=== PATIENT | female | born 1955 | race Caucasian/White ===

== ENCOUNTER 2016-11-18 09:52 | Observation (INO) | payer OTHER, MEDICAID ==
[2016-11-18] VITALS (14 sets, daily range): BP systolic 104–121; BP diastolic 55–78; PULSE 77–105; RESP 12–18; TEMP 96.7–98.6; O2SAT 90–98
[~2016-11-18] VITALS: Ht 149.9 cm; Wt 65.1 kg
--- NOTE | 2016-11-18 10:16 | PD ---
HPI Chief Complaint: Chest Pain Time Seen by Provider: 10:04 Travel History International Travel<30 days: No Contact w/Intl Traveler<30days: No Traveled to known affect area: No History of Present Illness HPI 61-year-old female complains of chest pain. Patient states that she has persistent chest pain for the past 3 days. Patient states the chest pain is aching pain with radiation to the left shoulder and left arm. Patient denies any nausea vomiting diaphoresis. Patient denies any coughing congestion fever chills. Patient has history of AZ in 2016 status post stent placement. Patient 's on aspirin 81 mg daily and Plavix. Patient did not take her medication this morning. Patient has history hypertension, diabetes, hyperlipidemia. Patient is a nonsmoker. Patient has family history of heart disease. Patient moved down here recently and does not have a local online content developer. On a scale of 1-10 the chest pain is an 8. Now. PFSH Past Medical History Hx Anticoagulant Therapy: Yes Cardiovascular Problems: Yes Diabetes: Yes ?: Not Social History Tobacco Use: No Allergies-Medications (Allergen,Severity, Reaction): Coded Allergies: Biaxin (Verified Allergy, Severe, Nausea/Vomiting, 11/18/16) Darvon (Verified Allergy, Severe, Nausea/Vomiting, 11/18/16) Reported Meds & Prescriptions Reported Meds & Active Scripts Active Reported Temazepam 15 Mg Cap 15 Mg PO HS PRN Metformin (Metformin HCl) 500 Mg Tab 500 Mg PO BIDPC With meals Hydroxyzine HCl 50 Mg Tab 50 Mg PO TID Ropinirole 0.25 Mg Tab 0.25 Mg PO HS Quetiapine (Quetiapine Fumarate) 300 Mg Tab 300 Mg PO HS Atorvastatin (Atorvastatin Calcium) 80 Mg Tab 80 Mg PO HS Plavix (Clopidogrel Bisulfate) 75 Mg Tab 75 Mg PO DAILY Metoprolol Tartrate 25 Mg Tab 25 Mg PO DAILY Aspirin 81 Mg Chew 81 Mg CHEW DAILY Review of Systems General / Constitutional: No: Fever Eyes: No: Visual changes HENT: No: Headaches Cardiovascular: Positive: Chest Pain or Discomfort Respiratory: No: Shortness of Breath Gastrointestinal: No: Abdominal Pain Genitourinary: No: Dysuria Musculoskeletal: No: Pain Skin: No Rash Neurologic: No: Weakness Psychiatric: No: Depression Endocrine: No: Polydipsia Hematologic/Lymphatic: No: Easy Bruising Physical Exam Narrative GENERAL: Well-nourished, well-developed patient. SKIN: Focused skin assessment warm/dry. HEAD: Normocephalic. EYES: No scleral icterus. No injection or drainage. NECK: Supple, trachea midline. No JVD or lymphadenopathy. CARDIOVASCULAR: Regular rate and rhythm without murmurs, gallops, or rubs. RESPIRATORY: Breath sounds equal bilaterally. No accessory muscle use. GASTROINTESTINAL: Abdomen soft, non-tender, nondistended. MUSCULOSKELETAL: No cyanosis, or edema. BACK: Nontender without obvious deformity. No CVA tenderness. Neurologic exam normal. Data Data Last Documented VS Vital Signs Date Time Temp Pulse Resp B/P Pulse Ox O2 Delivery O2 Flow Rate FiO2 11/18/16 10:34 18 11/18/16 10:32 105 104/58 98 Room Air 11/18/16 10:07 98.6 Orders Electrocardiogram (11/18/16 10:10) Complete Blood Count With Diff (11/18/16 10:10) Comprehensive Metabolic Panel (11/18/16 10:10) Creatine Kinase (Cpk) (11/18/16 10:10) Troponin I (11/18/16 10:10) Prothrombin Time / Inr (Pt) (11/18/16 10:10) Act Partial Throm Time (Ptt) (11/18/16 10:10) Chest, Single Ap (11/18/16 10:10) Iv Access Insert/Monitor (11/18/16 10:10) Ecg Monitoring (11/18/16 10:10) Oximetry (11/18/16 10:10) Aspirin (Aspirin) (11/18/16 10:30) Nitroglycerin Sl (Nitrostat Sl) (11/18/16 10:30) Morphine Inj (Morphine Inj) (11/18/16 11:30) Ondansetron Inj (Zofran Inj) (11/18/16 11:30) Admit Order (Ed Use Only) (11/18/16 11:21) Labs Laboratory Tests Test 11/18/16 10:00 White Blood Count 6.7 TH/MM3 Red Blood Count 4.51 MIL/MM3 Hemoglobin 13.0 GM/DL Hematocrit 38.1 % Mean Corpuscular Volume 84.4 FL Mean Corpuscular Hemoglobin 28.9 PG Mean Corpuscular Hemoglobin 34.2 % Concent Red Cell Distribution Width 12.4 % Platelet Count 146 TH/MM3 Mean Platelet Volume 9.4 FL Neutrophils (%) (Auto) 63.7 % Lymphocytes (%) (Auto) 26.6 % Monocytes (%) (Auto) 5.5 % Eosinophils (%) (Auto) 2.9 % Basophils (%) (Auto) 1.3 % Neutrophils # (Auto) 4.2 TH/MM3 Lymphocytes # (Auto) 1.8 TH/MM3 Monocytes # (Auto) 0.4 TH/MM3 Eosinophils # (Auto) 0.2 TH/MM3 Basophils # (Auto) 0.1 TH/MM3 CBC Comment DIFF FINAL Differential Comment Prothrombin Time 10.9 SEC Prothromb Time International 1.0 RATIO Ratio Activated Partial 28.0 SEC Thromboplast Time Sodium Level 142 MEQ/L Potassium Level 3.5 MEQ/L Chloride Level 105 MEQ/L Carbon Dioxide Level 26.7 MEQ/L Anion Gap 10 MEQ/L Blood Urea Nitrogen 21 MG/DL Creatinine 0.88 MG/DL Estimat Glomerular Filtration 65 ML/MIN Rate Random Glucose 207 MG/DL Calcium Level 8.9 MG/DL Total Bilirubin 0.5 MG/DL Aspartate Amino Transf 22 U/L (AST/SGOT) Alanine Aminotransferase 34 U/L (ALT/SGPT) Alkaline Phosphatase 123 U/L Total Creatine Kinase 66 U/L Troponin I LESS THAN 0.02 NG/ML Total Protein 7.4 GM/DL Albumin 3.9 GM/DL [facility] Medical Decision Making Medical Screen Exam Complete: Yes Emergency Medical Condition: Yes Interpretation(s) 10:16 AM. EKG shows sinus rhythm nonspecific ST-T wave change. Last Impressions Chest X-Ray 11/18/16 1010 Signed Impressions: Service Date/Time: Friday, November 18, 2016 10:30 - CONCLUSION: No acute cardiopulmonary abnormality is identified. Hari Causey MD 10:58 AM. CBC within normal limit. CMP within normal limit. Glucose 207. Cardiac enzymes are normal. Differential Diagnosis Differential diagnosis including angina, AZ, PE, pneumothorax. Narrative Course 61-year-old female with chest pain. History of CAD status post stent placement. Aspirin 325 mg by mouth given. Nitroglycerin sublingual given. Patient did not get relief with nitroglycerin from chest pain. Morphine 2 mg IV. Zofran 4 mg IV. I spoke Dr. Gonzales, online content developer on-call. Advised chest pain center. Diagnosis Primary Impression: Chest pain Qualified Code: R07.9 - Chest pain, unspecified type Roney Jacques MD Nov 18, 2016 10:16
[2016-11-18] MEDS ORDERED: PLAV75TA29 PO (10:18)
[2016-11-18] MEDS ORDERED: QUET1TAB10 PO (10:18)
[2016-11-18] MEDS ORDERED: HYDR50TA94 PO (10:18)
[2016-11-18] MEDS ORDERED: METO25TA3 PO (10:18)
[2016-11-18] MEDS ORDERED: ASPI81CH CHEW (10:18)
[2016-11-18] MEDS ORDERED: TEMA15CA PO (10:18)
[2016-11-18] MEDS ORDERED: ROPI0.25 PO (10:18)
[2016-11-18] MEDS ORDERED: ATOR1TAB18 PO (10:18)
[2016-11-18] MEDS ORDERED: METF500T PO (10:18)
[2016-11-18] MEDS ORDERED: ASPIRIN 325 MG TAB PO ONE (10:30)
[2016-11-18] MEDS ORDERED: NITROGLYCERIN 0.4 MG SL 25 TABS/BTL SL ONE (10:30)
[2016-11-18 10:32] LABS: CHLORIDE 105 MEQ/L (98-107); POTASSIUM 3.5 MEQ/L (3.5-5.1); SODIUM (NA) 142 MEQ/L (136-145)
[2016-11-18 10:35] LABS: PROTHROMBIN TIME - PATIENT 10.9 SEC (9.8-11.6)
[2016-11-18 10:36] LABS: ANION GAP 10 MEQ/L (5-15); BICARBONATE 26.7 MEQ/L (21.0-32.0); BLOOD UREA NITROGEN 21 MG/DL (7-18)
[2016-11-18 10:38] LABS: ALT (GPT) 34 U/L (10-53)
--- NOTE | 2016-11-18 10:38 | RADRPT ---
EXAM DATE/TIME: 11/18/2016 10:30 [facility] COMPARISON: No previous studies available for comparison. INDICATIONS : Chest pain. MEDICAL HISTORY : Cardiovascular disease. Diabetes mellitus type II. Myocardial infarction. Hypertension SURGICAL HISTORY : Coronary artery stent. ENCOUNTER: Initial ACUITY: 1 day PAIN SCORE: 8/10 LOCATION: Bilateral chest FINDINGS: Portable AP view of the chest demonstrates a normal-sized cardiac silhouette. Linear opacity at the l eft lung base represents either atelectasis or scar. No effusion, consolidation, or pneumothorax is v isualized. Bones and soft tissues demonstrate no acute finding. CONCLUSION: No acute cardiopulmonary abnormality is identified. Hari Causey MD on November 18, 2016 at 10:36 Board Certified Radiologist. This report was verified electronically.
[2016-11-18 10:39] LABS: AST (GOT) 22 U/L (15-37); AUTOMATED NEUTROPHIL # 4.2 TH/MM3 (1.8-7.7); BASOPHIL # 0.1 TH/MM3 (0-0.2); BASOPHIL % 1.3 % (0.0-2.0); EOSINOPHIL # 0.2 TH/MM3 (0-0.4); EOSINOPHIL % 2.9 % (0.0-4.0); GLOMERULAR FILTRATION RATE 65 ML/MIN (>89); HEMATOCRIT 38.1 % (35.0-46.0); HEMO FLAGS DIFF FINAL; LYMPH % 26.6 % (9.0-44.0); LYMPHOCYTE # 1.8 TH/MM3 (1.0-4.8); MEAN CELL VOLUME 84.4 FL (80.0-100.0); MEAN CORPUSCULAR HEMOGLOBIN 28.9 PG (27.0-34.0); MEAN CORPUSCULAR HGB CONC 34.2 % (32.0-36.0); MONO % 5.5 % (0.0-8.0); NEUT % 63.7 % (16.0-70.0); PLATELET COUNT 146 TH/MM3 (150-450); RED BLOOD COUNT 4.51 MIL/MM3 (4.00-5.30); RED CELL DISTRIBUTION WIDTH 12.4 % (11.6-17.2); WHITE BLOOD COUNT 6.7 TH/MM3 (4.0-11.0)
[2016-11-18 10:40] LABS: TOTAL BILIRUBIN ADULT 0.5 MG/DL (0.2-1.0)
[2016-11-18 10:41] LABS: ALKALINE PHOSPHATASE 123 U/L (45-117)
[2016-11-18 10:43] LABS: CREATINE KINASE 66 U/L (26-192)
[2016-11-18] MEDS ORDERED: ONDANSETRON HCL 4 MG/2 ML VIAL IV PUSH ONE (11:30)
[2016-11-18] MEDS ORDERED: ONDANSETRON HCL 4 MG/2 ML VIAL IV PRN (11:30)
[2016-11-18] MEDS ORDERED: MORPHINE SULFATE 8 MG/ML INJ IV PUSH ONE (11:30)
[2016-11-18] MEDS ORDERED: SODIUM CHLORIDE 0.9% FLUSH 10 ML FLUSH IV FLUSH PRN (11:30)
[2016-11-18] MEDS ORDERED: TEMAZEPAM 15 MG CAP PO PRN (12:15)
[2016-11-18] MEDS ORDERED: MORPHINE SULFATE 4 MG/ML INJ IV PUSH PRN (12:15)
[2016-11-18] MEDS ORDERED: SODIUM CHLOR 0.9% 1000 ML INJ 1,000 ML IV ONE (12:15)
[2016-11-18] MEDS ORDERED: GLUCAGON 1 MG/ML VIAL OTHER PRN (12:15)
[2016-11-18] MEDS ORDERED: DEXTROSE 50% IN WATER 50 ML VIAL(D50) IV PRN (12:15)
[2016-11-18] MEDS: CLOPIDOGREL 75 MG TAB PO SCH (13:02)
[2016-11-18] MEDS: hydrOXYzine HCL 50 MG TAB PO SCH ×2 (13:02→17:07)
--- NOTE | 2016-11-18 13:29 | HHI.HP ---
[facility] Renea Rodríguez MD Admission Diagnosis chest pain Diagnoses: (1) Chest pain (2) Hypertension Diagnosis: Secondary (3) Hyperlipidemia Diagnosis: Secondary (4) Coronary artery disease Diagnosis: Secondary (5) Diabetes Diagnosis: Secondary (6) History of coronary artery stent placement Chief Complaint: Chest discomfort Travel History International Travel<30 Days: No Contact w/Intl Traveler <30 Da: No Traveled to Known Affected Are: No History of Present Illness Written by Marcell Call, acting as scribe for Dr. Keller on 11/18/16 at 13:19. 61-year-old female with known history of hypertension, hyperlipidemia , coronary artery disease status post stenting, diabetes who presented to hospital because of chest discomfort for 3 days. Patient describes as a constant pain that starts in the left posterior lateral back around the 57 intercostal space and radiates up over her left shoulder and down into her anterior chest. He states the pain is constant at about 3/10 on a pain scale and does worsen to 8/10 on a pain scale whenever she exerts herself. She indicates the pain never goes away. The patient did get aspirin and nitroglycerin emergency department without any improvement. She does indicate that morphine did bring the pain down to a 3/10. She indicates that she has had previous heart attack in June 2015 where she had cardiac catheterization with stent placement. She does indicate that there has been times when she was nauseous. However she denies any shortness of breath, dyspnea, vomiting, lightheadedness, dizziness. Patient does not indicate that this pain is similar to her previous coronary event pain. The patient was moved down here recently and does not have a tapper supervisor in the area. The patient came to emergency department for evaluation. Thus far she has been ruled out for acute coronary event. Is recommended by ER physician that the patient be observed in the chest pain center for further workup. Review of Systems Cardiovascular: COMPLAINS OF: Chest pain Gastrointestinal: COMPLAINS OF: Nausea Except as stated in HPI: all other systems reviewed are Neg Past Family Social History Past Medical History Hypertension Hyperlipidemia Diabetes Coronary artery disease status post stenting Past Surgical History Bilateral knee surgery Cardiac catheterization with stenting Cataract surgery Reported Medications Reported Meds & Active Scripts Active Reported Temazepam 15 Mg Cap 15 Mg PO HS PRN Metformin (Metformin HCl) 500 Mg Tab 500 Mg PO BIDPC With meals Hydroxyzine HCl 50 Mg Tab 50 Mg PO TID Ropinirole 0.25 Mg Tab 0.25 Mg PO HS Quetiapine (Quetiapine Fumarate) 300 Mg Tab 300 Mg PO HS Atorvastatin (Atorvastatin Calcium) 80 Mg Tab 80 Mg PO HS Plavix (Clopidogrel Bisulfate) 75 Mg Tab 75 Mg PO DAILY Metoprolol Tartrate 25 Mg Tab 25 Mg PO DAILY Aspirin 81 Mg Chew 81 Mg CHEW DAILY Allergies: Coded Allergies: Biaxin (Verified Allergy, Severe, Nausea/Vomiting, 11/18/16) Darvon (Verified Allergy, Severe, Nausea/Vomiting, 11/18/16) Family History Reviewed is significant for father having heart disease at age 84. Social History Patient denies any tobacco, alcohol or illicit drugs Physical Exam Vital Signs Vital Signs Date Time Temp Pulse Resp B/P Pulse Ox O2 Delivery O2 Flow Rate FiO2 11/18/16 13:07 98 18 106/64 98 Room Air 11/18/16 11:52 97 18 106/69 97 Room Air 11/18/16 11:52 97 98 Room Air 11/18/16 11:33 18 11/18/16 10:34 18 11/18/16 10:32 105 18 104/58 98 Room Air 11/18/16 10:25 100 18 118/68 98 Room Air 11/18/16 10:16 94 18 111/70 97 Room Air 11/18/16 10:10 96 18 11/18/16 10:07 98.6 98 18 121/78 96 Physical Exam GENERAL: Well-developed, well-nourished, in no acute distress. alert and orientated HEENT: Head is normocephalic without any lesions or masses noted. Facial features are symmetric. Eyes: Pupils equal round reactive to light. Extraocular muscles are intact. Conjunctivae were clear. Oropharyngeal: Pharynx without any erythema edema. Tongue is midline without deviation. Buccal mucosa is moist without any masses or lesions NECK: Supple without any masses. Trachea midline no deviation. No JVD, no bruits are appreciated CARDIAC: Regular rhythm, regular rate. S1/S2 are heard. No murmurs gallops or rubs. Patient does have reproducible palpable tenderness noted along the back at about 57 intercostal spaces on the lateral aspect. There is also reproducible palpable tenderness noted between the second and third intercostal space at the left sternal border LUNGS: Clear to auscultation bilaterally. No wheeze, rhonchi or rales. No use of accessory muscles on inspiration or expiration. ABDOMEN: Soft, nontender. Nondistended. Bowel sounds heard in all 4 quadrants. No organomegaly or masses. Negative rebound, negative guarding EXTREMITIES: No edema, pulses are equal bilaterally. No cyanosis or clubbing NEUROLOGY: Mood and affect appear appropriate. Cranial nerves II through XII grossly intact. Muscle strength 5/5 in upper and lower extremities bilaterally. Deep tendon reflexes are 2+ in upper and lower extremities bilaterally. Laboratory Laboratory Tests Test 11/18/16 10:00 White Blood Count 6.7 Red Blood Count 4.51 Hemoglobin 13.0 Hematocrit 38.1 Mean Corpuscular Volume 84.4 Mean Corpuscular Hemoglobin 28.9 Mean Corpuscular Hemoglobin 34.2 Concent Red Cell Distribution Width 12.4 Platelet Count 146 Mean Platelet Volume 9.4 Neutrophils (%) (Auto) 63.7 Lymphocytes (%) (Auto) 26.6 Monocytes (%) (Auto) 5.5 Eosinophils (%) (Auto) 2.9 Basophils (%) (Auto) 1.3 Neutrophils # (Auto) 4.2 Lymphocytes # (Auto) 1.8 Monocytes # (Auto) 0.4 Eosinophils # (Auto) 0.2 Basophils # (Auto) 0.1 CBC Comment DIFF FINAL Differential Comment Prothrombin Time 10.9 Prothromb Time International 1.0 Ratio Activated Partial 28.0 Thromboplast Time Sodium Level 142 Potassium Level 3.5 Chloride Level 105 Carbon Dioxide Level 26.7 Anion Gap 10 Blood Urea Nitrogen 21 Creatinine 0.88 Estimat Glomerular Filtration 65 Rate Random Glucose 207 Calcium Level 8.9 Total Bilirubin 0.5 Aspartate Amino Transf 22 (AST/SGOT) Alanine Aminotransferase 34 (ALT/SGPT) Alkaline Phosphatase 123 Total Creatine Kinase 66 Troponin I LESS THAN 0.02 Total Protein 7.4 Albumin 3.9 Result Diagram: 11/18/16 1000 11/18/16 1000 Imaging Last Impressions Chest X-Ray 11/18/16 1010 Signed Impressions: Service Date/Time: Friday, November 18, 2016 10:30 - CONCLUSION: No acute cardiopulmonary abnormality is identified. Hari Causey MD Assessment and Plan Assessment and Plan Chest pain, atypical Patient has have increased risk factors to include age, hypertension, hyperlipidemia, coronary disease, diabetes, family history of heart disease Chest pain does appear to be atypical and reproducible on palpation, however we 'll rule patient out for acute coronary event with serial cardiac enzymes and serial EKGs Likely pursue nuclear stress test in the morning if patient having ruled out for acute coronary event Continue aspirin, nitroglycerin as needed, morphine for pain control Hypertension, hyperlipidemia, coronary artery disease Home medications have been continued Diabetes Accu-Cheks with sliding scale insulin DVT prevention Sequential compression devices This note was transcribed by scribe [Marcell Call]. I, Dr. Gaurang Keller, personally performed the history, physical exam, and medical decision making; and confirmed the accuracy of the information in the transcribed note. Discussed Condition With ER physician and the patient. Problem Qualifiers (1) Chest pain: Qualified Code: R07.9 - Chest pain, unspecified type (2) Hypertension: Qualified Code: I10 - Hypertension, unspecified type (3) Hyperlipidemia: Qualified Code: E78.5 - Hyperlipidemia, unspecified hyperlipidemia type (4) Coronary artery disease: Qualified Code: I25.10 - Coronary artery disease, angina presence unspecified, unspecified vessel or lesion type, unspecified whether sioux or transplanted heart (5) Diabetes: Qualified Code: E11.8 - Type 2 diabetes mellitus with complication, without long-term current use of insulin Marcell Call Nov 18, 2016 13:29 Gaurang Keller MD Nov 18, 2016 13:46
[2016-11-18 13:34] LABS: CREATINE KINASE 59 U/L (26-192)
--- NOTE | 2016-11-18 14:47 | EKG ---
Date Performed: 11/18/2016 Time Performed: 10:03:57 PTAGE: 61 years EKG: Sinus rhythm NONSPECIFIC T-WAVE ABNORMALITY BORDERLINE ECG NO PREVIOUS TRACING DOCTOR: Michael Hernandez Interpretating Date/Time 11/18/2016 14:45:43
[2016-11-18] MEDS: INSULIN ASPART SUPPLEMENTAL SCALE SQ SCH ×2 (15:32→21:00)
[2016-11-18] MEDS: ACETAMINOPHEN 500 MG CPLT PO PRN ×2 (17:07→22:06)
[2016-11-18 17:26] LABS: CREATINE KINASE 57 U/L (26-192)
[2016-11-18] MEDS ORDERED: QUEtiapine FUMARATE 300 MG TAB PO SCH (21:00)
[2016-11-18] MEDS ORDERED: ATORVASTATIN 40 MG TAB PO SCH (21:00)
[2016-11-18] MEDS: SODIUM CHLORIDE 0.9% FLUSH 10 ML FLUSH IV FLUSH SCH (22:06)
[2016-11-19 00:33] VITALS: BP 105/68; PULSE 77; RESP 16; TEMP 97.9; O2SAT 95
[2016-11-19 04:30] VITALS: BP 112/78; PULSE 90; RESP 12; TEMP 96.9; O2SAT 94
[2016-11-19] MEDS: INSULIN ASPART SUPPLEMENTAL SCALE SQ SCH ×2 (05:31→11:00)
[2016-11-19 08:00] VITALS: BP 121/79; PULSE 90; RESP 19; TEMP 97.3; O2SAT 95
[2016-11-19] MEDS: NITROGLYCERIN 0.4 MG SL 25 TABS/BTL SL PRN ×2 (08:52→09:05)
[2016-11-19] MEDS: SODIUM CHLORIDE 0.9% FLUSH 10 ML FLUSH IV FLUSH SCH (08:53)
[2016-11-19] MEDS: CLOPIDOGREL 75 MG TAB PO SCH (08:53)
[2016-11-19] MEDS: hydrOXYzine HCL 50 MG TAB PO SCH ×2 (08:53→12:28)
[2016-11-19] MEDS ORDERED: ASPIRIN 81 MG CHEW TAB CHEW SCH (09:00)
[2016-11-19 09:08] VITALS: O2SAT 98
[2016-11-19] MEDS ORDERED: REGADENOSON INJ 0.4 MG/5 ML SYR IV ONE (10:34)
--- NOTE | 2016-11-19 11:42 | RADRPT ---
EXAM DATE/TIME: 11/19/2016 10:25 [facility] COMPARISON: No previous studies available for comparison. INDICATIONS : Substernal chest pain with nausea radiating to left arm for three days. Angina. Coronary artery disea se. DOSE: 25.4 mCi Tc99m Myoview at stress. 8.5 mCi Tc99m Myoview at rest. 0.4 mg Lexiscan STRESS SYMPTOMS: Weird feeling and stomach pain. EJECTION FRACTION: > 70% MEDICAL HISTORY : Hypertension. Diabetes mellitus type 2. SURGICAL HISTORY : Coronary artery stent. Bilateral knee surgery. ENCOUNTER: Initial ACUITY: 3 days PAIN SCALE: 5/10 LOCATION: Substernal chest TECHNIQUE: The patient underwent pharmacologic stress with infusion of prescribed dose. Continuous ECG tracing was monitored during stress. Gated SPECT imaging was performed after stress and conventional SPECT i maging was performed at rest. The examination was performed on a SPECT/CT scanner, both attenuation and non-corrected datasets were reviewed. FINDINGS: DISTRIBUTION: The maximum perfused segment at stress is in the anterolateral wall. PERFUSION STUDY: The pattern of perfusion at stress is within normal limits. GATED STUDY: There is intact wall motion and thickening without hypokinetic or dyskinetic segments. CONCLUSION: Unremarkable study. RISK CATEGORY: Low (<1% Annual Mortality Rate) Dania Philip MD on November 19, 2016 at 11:39 Board Certified Radiologist. This report was verified electronically.
[2016-11-19 12:00] VITALS: BP 130/82; PULSE 98; RESP 18; TEMP 97.1; O2SAT 95
[2016-11-19] MEDS ORDERED: LIDOCAINE HCL 5% PATCH T-DERMAL SCH (12:09)
--- NOTE | 2016-11-19 12:16 | TR ---
Date Performed: 11/19/2016 Time Performed: 10:45:07 DOCTOR: Tomer Chandra DRUG LIST: CLINICAL HISTORY: CHEST PAIN REASON FOR TEST: Chest pain REASON FOR ENDING: OBSERVATION: CONCLUSION: Lexiscan stress test was performed under standard four minute protocol. Radionuclid e was injected one minute prior to ending the test. No electrocardiographic abormalities were present to suggest ischemia. Nuclear imaging and interpretation are pending. COMMENTS:
--- NOTE | 2016-11-19 12:17 | EKG ---
Date Performed: 11/18/2016 Time Performed: 12:46:22 PTAGE: 61 years EKG: Sinus rhythm WITH FIRST DEGREE AV BLOCK Since previous tracing, no significant change noted ABNORMAL ECG PREVIOUS TRACING : 11/18/2016 10.03 DOCTOR: Jose Galo Interpretating Date/Time 11/19/2016 12:16:14
--- NOTE | 2016-11-19 12:18 | EKG ---
Date Performed: 11/18/2016 Time Performed: 16:13:57 PTAGE: 61 years EKG: Sinus rhythm WITH FIRST DEGREE AV BLOCK NONSPECIFIC T-WAVE ABNORMALITY Since previous tracing, no significant edilma nge noted ABNORMAL ECG PREVIOUS TRACING : 11/18/2016 12.46 DOCTOR: Jose Galo Interpretating Date/Time 11/19/2016 12:16:28
[2016-11-19] MEDS: ACETAMINOPHEN 500 MG CPLT PO PRN (13:14)
--- NOTE | 2016-11-19 13:22 | HHI.DCPOC ---
Discharge Care Plan Diagnosis: (1) Chest pain Goals to Promote Your Health * To prevent worsening of your condition and complications * To maintain your health at the optimal level Directions to Meet Your Goals Take your medications as prescribed Follow your dietary instruction Follow activity as directed Keep your appointments as scheduled Take your immunizations and boosters as scheduled If your symptoms worsen call your PCP, if no PCP go to Urgent Care Center or Emergency Room Smoking is Dangerous to Your Health. Avoid second hand smoke Call the 24-hour hour crisis hotline for domestic abuse at Marcell Call Nov 19, 2016 13:22
[2016-11-19] MEDS ORDERED: LIDO5DIS5 T-DERMAL (14:52)
--- NOTE | 2016-11-19 14:58 | HHI.PR ---
Subjective Remarks Patient seen this morning around 11 AM. Says she is feeling fine. Denies any chest pain or shortness of breath. She does report continued left posterior thoracic pain worse with movement. Denies any nausea or vomiting. Denies any recent falls or injuries. Objective Vital Signs Date Time Temp Pulse Resp B/P Pulse Ox O2 Delivery O2 Flow Rate FiO2 11/19/16 12:00 97.1 98 18 130/82 95 11/19/16 09:08 98 21 11/19/16 08:00 97.3 90 19 121/79 95 11/19/16 04:30 96.9 90 12 112/78 94 11/19/16 00:33 97.9 77 16 105/68 95 11/18/16 22:00 82 11/18/16 21:02 96.7 85 12 105/65 90 11/18/16 20:30 94 21 11/18/16 18:00 82 11/18/16 16:00 96.8 82 18 110/73 95 I/O 11/18/16 11/18/16 11/18/16 11/19/16 11/19/16 11/19/16 06:59 14:59 22:59 06:59 14:59 22:59 Intake Total 2440 ml Balance 2440 ml Intake Oral 240 ml IV Total 2200 ml # Voids 2 2 Result Diagram: 11/18/16 1000 11/18/16 1000 Objective Remarks GENERAL: Patient sitting up in bed. Appears comfortable. Alert and oriented 3. SKIN: Warm and dry. HEAD: Normocephalic. EYES: No scleral icterus. No injection or drainage. NECK: Supple, trachea midline. No JVD. CARDIOVASCULAR: Regular rate and rhythm without murmurs, gallops, or rubs. RESPIRATORY: Breath sounds equal bilaterally. No accessory muscle use. GASTROINTESTINAL: Abdomen soft, non-tender, nondistended. MUSCULOSKELETAL: No cyanosis, or edema. Patient does have swelling of the left trapezius muscle. Exacerbation of pain with pulling motion of arm. BACK: Nontender without obvious deformity. No CVA tenderness. A/P Assessment and Plan ===11/19/16 -Patient appears to have muscle strain left disease muscle. Ordered lidocaine patch. Myocardial perfusion scan reviewed and low risk. Follow Up with primary care.- //Chest pain, atypical Patient has have increased risk factors to include age, hypertension, hyperlipidemia, coronary disease, diabetes, family history of heart disease Chest pain does appear to be atypical and reproducible on palpation, however we 'll rule patient out for acute coronary event with serial cardiac enzymes and serial EKGs Likely pursue nuclear stress test in the morning if patient having ruled out for acute coronary event Continue aspirin, //Trapezius muscle strain. Based on exam Lidocaine patch ordered. Expect to improve over the next week. //Hypertension, hyperlipidemia, coronary artery disease Into new home meds. //Diabetes -Blood sugars reviewed and stable. Continue Accu-Cheks with sliding scale insulin //DVT prevention Sequential compression devices Discharge Planning Discharge home in good condition. No invasive procedures. Myocardial perfusion scan. Please see report. Heart healthy diet. Activity ad adrian. please see discharge medication reconciliation for medication list. Follow-up primary care. Adriano Vila MD Nov 19, 2016 14:58
[2016-11-19] MEDS ORDERED: REMOVE OLD LIDOCAINE PATCH T-DERMAL SCH (21:00)
== END 2016-11-19 15:23 | disposition home or self-care (01) ==
LOC: PHED 09:52 → PHEDA 11:23 → PH3B 13:36
PROVIDERS: ADMIT Internal Medicine; ATTEND Internal Medicine
DX: R07.89 Other chest pain (principal); I10 Essential (primary) hypertension; E78.5 Hyperlipidemia, unspecified; I25.10 Atherosclerotic heart disease of native coronary artery without angina pectoris; E11.9 Type 2 diabetes mellitus without complications; Z95.5 Presence of coronary angioplasty implant and graft; I44.0 Atrioventricular block, first degree; Z79.82 Long term (current) use of aspirin; Z79.84 Long term (current) use of oral hypoglycemic drugs; Z79.899 Other long term (current) drug therapy; Z82.49 Family history of ischemic heart disease and other diseases of the circulatory system
CPT/HCPCS: 71010; 78452; 80053; 82550; 82948; 84484; 85025; 85610; 85730; 93005; 93017; 99285; A9502; G0378; J2270; J2405; J2785; J7030